=== PATIENT | female | born 1985 | race Two or more races ===

== ENCOUNTER 2020-09-15 12:02 | Emergency (ER) | payer OTHER ==
[~2020-09-15] VITALS: Ht 152.4 cm; Wt 59.0 kg
[2020-09-15] MEDS ORDERED: BACITRACIN ZINC OINT UDPKT TOP ONE (13:30)
[2020-09-15] MEDS ORDERED: LIDOCAINE HCL/EPINEPHRINE 1%-EPI 1:100,000 10 ML VIAL IJ ONE (13:30)
[2020-09-15] MEDS ORDERED: LIDOCAINE HCL/EPINEPHRINE 1%-EPI 1:100,000 20 ML VIAL INFIL NR (13:30)
[2020-09-15] MEDS ORDERED: T3 PO (14:11)
[2020-09-15] MEDS ORDERED: AMOX1TAB15 MT (14:11)
[2020-09-15 14:30] VITALS: BP 131/89
== END 2020-09-15 14:30 | disposition home or self-care (01) ==
LOC: ER 12:02 → EDBD 12:02 → ER 14:30
DX: S01.85XA Open bite of other part of head, initial encounter (principal); W54.0XXA Bitten by dog, initial encounter; Y93.9 Activity, unspecified; Y92.512 Supermarket, store or market as the place of occurrence of the external cause; Y99.9 Unspecified external cause status
CPT/HCPCS: 12013; 81025; 99283; J3490